=== PATIENT | male | born 1955 | race Caucasian/White ===

== ENCOUNTER 2017-08-09 19:34 | Emergency (ER) | payer OTHER ==
[~2017-08-09] VITALS: Ht 188 cm; Wt 147.3 kg
[2017-08-09 19:35] VITALS: BP 103/69; PULSE 69; RESP 16; TEMP 98.2; O2SAT 98
[2017-08-09] MEDS ORDERED: ACTO45TA15 PO (19:57)
[2017-08-09] MEDS ORDERED: LOSA100T PO (19:57)
[2017-08-09] MEDS ORDERED: ASPI-516 CHEW (19:57)
[2017-08-09] MEDS ORDERED: SIMV40TA PO (19:57)
[2017-08-09] MEDS ORDERED: METF500T PO (19:57)
[2017-08-09] MEDS ORDERED: LANTUS2P SQ (19:57)
--- NOTE | 2017-08-09 20:07 | PD ---
HPI Chief Complaint: Injury Time Seen by Provider: 20:01 Travel History International Travel<30 days: No Contact w/Intl Traveler<30days: No Traveled to known affect area: No History of Present Illness HPI The patient is a 62-year-old male that complains of left ankle pain/deformity since he stepped off his truck onto a stepladder that apparently gave way. He has never dislocated his ankle before. PFSH Past Medical History High Cholesterol: Yes Diabetes: Yes Patient Takes Glucophage: Yes Hypertension: Yes ?: Not Social History Alcohol Use: Yes (SELDOM) Tobacco Use: No Substance Use: No Allergies-Medications (Allergen,Severity, Reaction): Coded Allergies: No Known Allergies (Unverified , 08/09/17) Reported Meds & Prescriptions Reported Meds & Active Scripts Active Reported Lantus Inj (Insulin Glargine) 1,000 Unit/10 Ml Vial 1 Units SQ HS Actos (Pioglitazone HCl) 45 Mg Tab 45 Mg PO DAILY Metformin (Metformin HCl) 500 Mg Tab 500 Mg PO BIDPC Losartan (Losartan Potassium) 100 Mg Tab 100 Mg PO DAILY Aspirin 81 Mg Chew 81 Mg CHEW DAILY Simvastatin 40 Mg Tab 40 Mg PO HS Review of Systems Except as stated in HPI: all other systems reviewed are Neg Physical Exam Narrative GENERAL: Well-nourished, well-developed patient in moderate apparent distress with his left ankle discomfort. His vital signs are normal. SKIN: Focused skin assessment warm/dry. HEAD: Normocephalic. EYES: No scleral icterus. No injection or drainage. NECK: Supple, trachea midline. No JVD or lymphadenopathy. CARDIOVASCULAR: Regular rate and rhythm without murmurs, gallops, or rubs. RESPIRATORY: Breath sounds equal bilaterally. No accessory muscle use. GASTROINTESTINAL: Abdomen soft, non-tender, nondistended. MUSCULOSKELETAL: No cyanosis, or edema. There is obvious deformity of the left ankle with eversion deformity. Good capillary refill and pinprick is present on the foot. BACK: Nontender without obvious deformity. No CVA tenderness. Data Data Last Documented VS Vital Signs Date Time Temp Pulse Resp B/P (MAP) Pulse Ox O2 Delivery O2 Flow Rate FiO2 08/09/17 21:00 98 6.00 08/09/17 19:58 16 08/09/17 19:35 98.2 69 103/69 (80) Orders Orders Ankle, Complete ([id number]) (08/09/17 20:01) Iv Access Insert/Monitor (08/09/17 20:10) Ecg Monitoring (08/09/17 20:10) Oximetry (08/09/17 20:10) Morphine Inj (Morphine Inj) (08/09/17 20:15) Sodium Chloride 0.9% Flush (Ns Flush) (08/09/17 20:15) Etomidate Inj (Amidate Inj) (08/09/17 20:45) Splint Or Brace Apply/Monitor (08/09/17 21:20) Ankle, Limited (Ap&Lat) (08/09/17 21:25) Fiberglass Short Leg Splint Ad (08/09/17 ) Fiberglass Sugartong Sp Ad Sl (08/09/17 ) Crutches (08/09/17 22:14) MDM Medical Decision Making Medical Screen Exam Complete: Yes Emergency Medical Condition: Yes Medical Record Reviewed: Yes Interpretation(s) X-rays show fracture of the distal fibula 6 cm above the ankle and posterior dislocation of the talus relative to the tibia. The fracture is mildly comminuted distal fibular shaft. Differential Diagnosis Dislocation ankle, sprained ankle-unlikely, fracture/dislocation ankle, fracture ankle Narrative Course The patient has a fracture/dislocation of the ankle. The reduction came out well here in emergency department and Dr. Olvera wants to follow this patient in the office. The patient is to call tomorrow morning to set up the appointment. He will be given crutches and is given him a Kincaid splint. Procedures Procedure Narrative The patient had procedural sedation used for reduction of his left ankle fracture/dislocation. Etomidate was used, 20 mg, and the reduction was performed easily. I had to remain for 20 minutes because the Kincaid splint had to be put on after the reduction. The patient tolerated the procedure well. Total time: 20 minutes. Diagnosis Primary Impression: Fracture dislocation of left ankle Additional Instructions: As we discussed, follow-up with orthopedics, call tomorrow morning to set up the appointment. Med/Other Pt SpecificInfo: Prescription(s) given Scripts Tramadol (Tramadol) 50 Mg Tab 50 MG PO Q4H Y for PAIN, #21 TAB 0 Refills Prov: Lloyd Cai MD 08/09/17 Disposition: 01 DISCHARGE HOME Condition: Stable Lloyd Cai MD Aug 09, 2017 20:07
[2017-08-09] MEDS ORDERED: SODIUM CHLORIDE 0.9% FLUSH 10 ML FLUSH IV FLUSH PRN (20:15)
[2017-08-09] MEDS ORDERED: MORPHINE SULFATE 4 MG/ML INJ IV PUSH ONE (20:15)
[2017-08-09] MEDS ORDERED: ETOMIDATE 20 MG/10 ML VIAL IV PUSH ONE (20:45)
[2017-08-09 21:00] VITALS: O2SAT 98
--- NOTE | 2017-08-09 21:13 | RADRPT ---
EXAM DATE/TIME: 08/09/2017 20:17 [facility] COMPARISON: No previous studies available for comparison. INDICATIONS : Trauma, fall off step ladder. MEDICAL HISTORY : None. SURGICAL HISTORY : None. ENCOUNTER: Initial ACUITY: 1 day PAIN SCORE: 10/10 LOCATION: Left ankle FINDINGS: 3 views of left ankle. Ankle fracture dislocation is seen with distal fibula shaft fracture 6 cm abov e the ankle. 33 posterior angulation of the distal fibular fracture fragment. Posterior dislocation of the talus relative to the tibia. No tibial fracture identified. CONCLUSION: Mildly comminuted angulated distal fibular shaft fracture. Tibiotalar joint dislocation with posterio r shift of the talus relative to the tibia. Caden Chacon MD on August 09, 2017 at 21:10 Board Certified Radiologist. This report was verified electronically.
--- NOTE | 2017-08-09 22:06 | RADRPT ---
EXAM DATE/TIME: 08/09/2017 21:38 [facility] COMPARISON: ANKLE LEFT COMPLETE ([id number]), August 09, 2017, 20:17. INDICATIONS : Post reduction. MEDICAL HISTORY : None. SURGICAL HISTORY : None. ENCOUNTER: Initial ACUITY: 1 day PAIN SCORE: 7/10 LOCATION: Left ankle FINDINGS: 2 views left ankle. Distal fibular fracture now demonstrates near anatomic alignment. Interval reduct ion of tibiotalar dislocation. CONCLUSION: Interval reduction of ankle fracture dislocation. Caden Chacon MD on August 09, 2017 at 22:03 Board Certified Radiologist. This report was verified electronically.
[2017-08-09] MEDS ORDERED: TRAM50TA PO (22:18)
[2017-08-09] MEDS ORDERED: traMADol HCL 50 MG TAB PO ONE (22:30)
[2017-08-09 22:40] VITALS: BP 145/67
== END 2017-08-09 22:43 | disposition home or self-care (01) ==
LOC: PHED 19:34
DX: S82.832A Other fracture of upper and lower end of left fibula, initial encounter for closed fracture (principal); W11.XXXA Fall on and from ladder, initial encounter; E78.00 Pure hypercholesterolemia, unspecified; E11.9 Type 2 diabetes mellitus without complications; I10 Essential (primary) hypertension
CPT/HCPCS: 28435; 73600; 73610; 96374; 99152; 99285; E0113; J2270

== ENCOUNTER 2017-08-20 05:47 | Day surgery (SDC) | payer OTHER ==
[~2017-08-20] VITALS: Ht 188 cm; Wt 115.5 kg
[~2017-08-20 05:47] MED LIST: ACTO45TA15 PO; ASPI-516 CHEW; LANTUS2P SQ; LOSA100T PO; METF500T PO; SIMV40TA PO; TRAM50TA PO
[2017-08-20] MEDS ORDERED: CHLORHEXIDINE GLUCONATE 4% SOLN 120 ML BTL TOPICAL SCH (06:15)
[2017-08-20] MEDS ORDERED: SODIUM CHLORID 0.9% 500 ML IV PRN (06:15)
[2017-08-20] MEDS ORDERED: CHLORHEXIDINE GLUCONATE 2 % 1 PACK (2 CLOTHS) TOPICAL PRN (06:15)
[2017-08-20] MEDS ORDERED: METOPROLOL TARTRATE 25 MG TAB PO PRN (06:15)
[2017-08-20] MEDS ORDERED: LACTATED RINGER'S 1000 ML IV PRN (06:15)
[2017-08-20] MEDS ORDERED: POVIDONE IODINE 5% (ANTISEPSIS KIT) 4 APPLICATIONS EACH NARE PRN (06:15)
[2017-08-20] MEDS ORDERED: VANCOMYCIN 1000 MG/NS 250 ML (for <70 kg) IV SCH ×2 (06:15)
[2017-08-20] MEDS ORDERED: ceFAZolin 2 GM PREMIX 50 ML IV SCH (06:15)
[2017-08-20 06:37] VITALS: BP 158/82; PULSE 74; RESP 18; TEMP 97.7; O2SAT 96
[2017-08-20] MEDS ORDERED: INSULIN HUMAN REGULAR 1,000 UNITS/10 ML VIAL ONE (06:45)
[2017-08-20] MEDS ORDERED: OMEGCAP PO (09:12)
--- NOTE | 2017-08-20 21:41 | EKG ---
Date Performed: 08/20/2017 Time Performed: 06:58:51 PTAGE: 62 years EKG: ATRIAL FIBRILLATION INFERIOR MYOCARDIAL INFARCTION , PROBABLY OLD ABNORMAL ECG NO PREVIOUS TRACING DOCTOR: Yayo Quintero Interpretating Date/Time 08/20/2017 21:39:45
[2017-08-21] MEDS ORDERED: HYDR-3583 PO (09:59)
[2017-08-21] MEDS ORDERED: CALCTAB19 PO (09:59)
[2017-08-21] MEDS ORDERED: XARE20TA PO (10:34)
== END 2017-08-20 08:12 | disposition home or self-care (01) ==
LOC: HSDC 05:47
PROVIDERS: ATTEND Orthopaedic Surgery Orthopaedic Trauma
DX: S99.912A Unspecified injury of left ankle, initial encounter (principal); I48.91 Unspecified atrial fibrillation; Z53.09 Procedure and treatment not carried out because of other contraindication
CPT/HCPCS: 93005; G0463; J1815; J7120; 99211

== ENCOUNTER 2017-08-20 08:18 | Observation (INO) | payer OTHER ==
[~2017-08-20] VITALS: Ht 188 cm; Wt 119.2 kg
[2017-08-20] VITALS (8 sets, daily range): BP systolic 140–167; BP diastolic 75–85; PULSE 66–84; RESP 18–20; TEMP 97–98.3; O2SAT 96–99
[2017-08-20 09:08] LABS: AUTOMATED NEUTROPHIL # 4.4 TH/MM3 (1.8-7.7); BASOPHIL % 0.6 % (0.0-2.0); EOSINOPHIL # 0.7 TH/MM3 (0-0.4); EOSINOPHIL % 9.3 % (0.0-4.0); HEMOGLOBIN 13.7 GM/DL (13.0-17.0); LYMPH % 22.8 % (9.0-44.0); LYMPHOCYTE # 1.7 TH/MM3 (1.0-4.8); MEAN CELL VOLUME 82.7 FL (80.0-100.0); MEAN CORPUSCULAR HEMOGLOBIN 28.2 PG (27.0-34.0); MEAN CORPUSCULAR HGB CONC 34.2 % (32.0-36.0); MEAN PLATELET VOLUME 8.6 FL (7.0-11.0); MONOCYTE # 0.7 TH/MM3 (0-0.9); NEUT % 58.3 % (16.0-70.0); PLATELET COUNT 272 TH/MM3 (150-450); RED BLOOD COUNT 4.84 MIL/MM3 (4.50-5.90); RED CELL DISTRIBUTION WIDTH 13.5 % (11.6-17.2); WHITE BLOOD COUNT 7.6 TH/MM3 (4.0-11.0)
[2017-08-20] MEDS ORDERED: OMEGCAP PO (09:12)
--- NOTE | 2017-08-20 09:15 | PD.CONS ---
HPI Consult Requested By Primary Care Physician Dinesh Cuello MD History of Present Illness 62-year-old male with a past medical history of HTN, HLD, DM. The patient was to have surgery on his left ankle fracture today. Prior to the surgery, he was found to have atrial fibrillation/flutter and was referred to the ED. He states he has a yearly EKG with his PCP and has always been normal in the past. He denies any chest pain, shortness breath, or palpitations. The plan at this time is for admission for cardiac clearance today and surgery with orthopedics tomorrow if cleared. The patient denies any history of stroke or TIA. Review of Systems Negative except as stated in the history of present illness Past Family Social History Allergies: Coded Allergies: No Known Allergies (Unverified , 08/09/17) Past Medical History Hypertension Hyperlipidemia Diabetes mellitus Reported Medications Reported Meds & Active Scripts Active Tramadol (Tramadol HCl) 50 Mg Tab 50 Mg PO Q4H PRN Reported Lantus Inj (Insulin Glargine) 1,000 Unit/10 Ml Vial 1 Units SQ HS Actos (Pioglitazone HCl) 45 Mg Tab 45 Mg PO DAILY Metformin (Metformin HCl) 500 Mg Tab 500 Mg PO BIDPC Losartan (Losartan Potassium) 100 Mg Tab 100 Mg PO DAILY Aspirin 81 Mg Chew 81 Mg CHEW DAILY Simvastatin 40 Mg Tab 40 Mg PO HS Family History Father with atrial fibrillation Physical Exam Vital Signs Vital Signs Date Time Temp Pulse Resp B/P (MAP) Pulse Ox O2 Delivery O2 Flow Rate FiO2 08/20/17 09:02 80 18 08/20/17 08:47 98.3 84 18 157/79 (105) 96 Physical Exam GENERAL: Well-developed well-nourished. Obese. In no acute distress. NECK: No carotid bruits. No JVD. CARDIOVASCULAR: Irregular controlled rate and irregular rhythm. No murmur appreciated. RESPIRATORY: No accessory muscle use. Clear to auscultation. Breath sounds equal bilaterally. MUSCULOSKELETAL: Left ankle splint. No edema. NEUROLOGICAL: Awake and alert. Normal speech. Laboratory Laboratory Tests Test 08/20/17 08:45 Assessment and Plan Assessment and Plan 62-year-old male with a past medical history of HTN, HLD, DM. The patient was to have surgery on his left ankle fracture today. Prior to the surgery, he was found to have atrial fibrillation/flutter and was referred to the ED. The plan at this time is for admission for cardiac clearance today and surgery with orthopedics tomorrow if cleared. Atrial fibrillation/flutter: Rate is controlled. Chadsvasc 2 for hypertension and diabetes mellitus, hold anticoagulation for now with upcoming surgery. Plan for Lexiscan and echocardiogram for preoperative clearance. Hypertension: Continue losartan Hyperlipidemia: Continue statin Discussed Condition With Patient with SO at bedside. Dr. Barrera, Pradeep Neely Aug 20, 2017 09:15
[2017-08-20 09:18] LABS: BICARBONATE 25.8 MEQ/L (21.0-32.0); CALCIUM 8.8 MG/DL (8.5-10.1); CREATININE 0.82 MG/DL (0.60-1.30)
--- NOTE | 2017-08-20 09:23 | PD ---
HPI Chief Complaint: Medical Clearance Time Seen by Provider: 08:44 Travel History International Travel<30 days: No Contact w/Intl Traveler<30days: No Traveled to known affect area: No History of Present Illness HPI 62-year-old male was brought in emergency room for new onset atrial fibrillation. Patient has history hypertension and diabetes. Patient was diagnosed with fracture left ankle recently and supposed to have surgery today. EKG done this morning shows atrial fibrillation. Patient was sent to the ED for evaluation. Patient denies any history of palpitation, history of atrial fibrillation in the past. Patient denies any chest pain or shortness of breath. Patient take aspirin 81 mg daily. PFSH Past Medical History Cancer: No Cardiovascular Problems: No High Cholesterol: Yes Diabetes: Yes Patient Takes Glucophage: Yes Endocrine: No Genitourinary: No Hepatitis: No Hiatal Hernia: No Hypertension: Yes Immune Disorder: No Musculoskeletal: No Neurologic: No Psychiatric: No Reproductive: No Respiratory: No Thyroid Disease: No Tetanus Vaccination: < 5 Years Influenza Vaccination: No Past Surgical History Surgical History: No Previous Surgery AICD: No Joint Replacement: No Pacemaker: No Social History Alcohol Use: Yes (SELDOM) Tobacco Use: No Substance Use: No Allergies-Medications (Allergen,Severity, Reaction): Coded Allergies: No Known Allergies (Unverified , 08/09/17) Reported Meds & Prescriptions Reported Meds & Active Scripts Active Tramadol (Tramadol HCl) 50 Mg Tab 50 Mg PO Q4H PRN Reported [place]-3 Fish Oil/Vitamin (Fish Oil-Cholecalciferol) 1,000-1,000 Mg Cap 1 Cap PO DAILY Lantus Inj (Insulin Glargine) 1,000 Unit/10 Ml Vial 1 Units SQ HS Actos (Pioglitazone HCl) 45 Mg Tab 45 Mg PO DAILY Metformin (Metformin HCl) 500 Mg Tab 500 Mg PO BIDPC Losartan (Losartan Potassium) 100 Mg Tab 100 Mg PO DAILY Aspirin 81 Mg Chew 81 Mg CHEW DAILY Simvastatin 40 Mg Tab 40 Mg PO HS Review of Systems General / Constitutional: No: Fever Eyes: No: Visual changes HENT: No: Headaches Cardiovascular: No: Chest Pain or Discomfort Respiratory: No: Shortness of Breath Gastrointestinal: No: Abdominal Pain Genitourinary: No: Dysuria Musculoskeletal: No: Pain Skin: No Rash Neurologic: No: Weakness Psychiatric: No: Depression Endocrine: No: Polydipsia Hematologic/Lymphatic: No: Easy Bruising Physical Exam Narrative GENERAL: Well-nourished, well-developed patient. SKIN: Focused skin assessment warm/dry. HEAD: Normocephalic. EYES: No scleral icterus. No injection or drainage. NECK: Supple, trachea midline. No JVD or lymphadenopathy. CARDIOVASCULAR: Irregularly irregular rate and rhythm without murmurs, gallops, or rubs. RESPIRATORY: Breath sounds equal bilaterally. No accessory muscle use. GASTROINTESTINAL: Abdomen soft, non-tender, nondistended. MUSCULOSKELETAL: No cyanosis, or edema. BACK: Nontender without obvious deformity. No CVA tenderness. Neurologic exam normal. Data Data Last Documented VS Vital Signs Date Time Temp Pulse Resp B/P (MAP) Pulse Ox O2 Delivery O2 Flow Rate FiO2 08/20/17 09:02 80 18 08/20/17 08:47 98.3 157/79 (105) 96 Orders Orders Electrocardiogram (08/20/17 08:44) Complete Blood Count With Diff (08/20/17 08:44) Basic Metabolic Panel (Bmp) (08/20/17 08:44) Prothrombin Time / Inr (Pt) (08/20/17 08:44) Act Partial Throm Time (Ptt) (08/20/17 08:44) Thyroid Stimulating Hormone (08/20/17 08:44) Chest, Single Ap (08/20/17 08:44) Iv Access Insert/Monitor (08/20/17 08:44) Ecg Monitoring (08/20/17 08:44) Oximetry (08/20/17 08:44) Diet Npo Except Meds (08/20/17 Breakfast) Myocardial Perf Pharm Sp W/Ef (08/20/17 ) Echo 2d Comp With Doppler (08/20/17 ) Labs Laboratory Tests Test 08/20/17 08:45 White Blood Count 7.6 TH/MM3 Red Blood Count 4.84 MIL/MM3 Hemoglobin 13.7 GM/DL Hematocrit 40.0 % Mean Corpuscular Volume 82.7 FL Mean Corpuscular Hemoglobin 28.2 PG Mean Corpuscular Hemoglobin Concent 34.2 % Red Cell Distribution Width 13.5 % Platelet Count 272 TH/MM3 Mean Platelet Volume 8.6 FL Neutrophils (%) (Auto) 58.3 % Lymphocytes (%) (Auto) 22.8 % Monocytes (%) (Auto) 9.0 % Eosinophils (%) (Auto) 9.3 % Basophils (%) (Auto) 0.6 % Neutrophils # (Auto) 4.4 TH/MM3 Lymphocytes # (Auto) 1.7 TH/MM3 Monocytes # (Auto) 0.7 TH/MM3 Eosinophils # (Auto) 0.7 TH/MM3 Basophils # (Auto) 0.0 TH/MM3 CBC Comment DIFF FINAL Differential Comment Blood Urea Nitrogen 21 MG/DL Creatinine 0.82 MG/DL Random Glucose 248 MG/DL Calcium Level 8.8 MG/DL Sodium Level 135 MEQ/L Potassium Level 4.3 MEQ/L Chloride Level 102 MEQ/L Carbon Dioxide Level 25.8 MEQ/L Anion Gap 7 MEQ/L Estimat Glomerular Filtration Rate 95 ML/MIN MDM Medical Decision Making Medical Screen Exam Complete: Yes Emergency Medical Condition: Yes Interpretation(s) 9:23 AM. EKG showed atrial fibrillation/atrial flutter. Differential Diagnosis Differential diagnosis including atrial ablation, atrial flutter, sinus tachycardia sinus arrhythmia. Narrative Course 62-year-old male with new onset atrial fibrillation/atrial flutter. Patient will be admitted to medical service, medical clearance by storeperson for possible surgery in a.m. Karla scan and echocardiogram will be done today. Diagnosis Primary Impression: New onset atrial fibrillation Admitting Information Admitting Physician Requests: Admit James Baig MD Aug 20, 2017 09:23
[2017-08-20 09:24] LABS: INTERNATIONAL NORMALIZED RATIO 1.1 RATIO; PROTHROMBIN TIME - PATIENT 11.6 SEC (9.8-11.6)
--- NOTE | 2017-08-20 09:34 | RADRPT ---
EXAM DATE/TIME: 08/20/2017 08:49 [facility] COMPARISON: No previous studies available for comparison. INDICATIONS : Patient stated he came in for outpatient surgery on left ankle. MEDICAL HISTORY : Diabetic, Hypertension. SURGICAL HISTORY : None. ENCOUNTER: Initial ACUITY: 1 day PAIN SCORE: 0/10 LOCATION: Bilateral chest FINDINGS: The cardiac silhouette is enlarged in transverse diameter. The lungs are free of acute parenchymal op acity. No effusions are identified. Osseous structures are intact. CONCLUSION: Cardiomegaly. No acute cardiopulmonary disease. Tay Bardales MD on August 20, 2017 at 9:32 Board Certified Radiologist. This report was verified electronically.
[2017-08-20] MEDS: SODIUM CHLOR 0.9% 1000 ML INJ 1,000 ML IV SCH ×3 (09:51→22:29)
--- NOTE | 2017-08-20 10:16 | HHI.HP ---
HPI Service [facility] Hospitalists Primary Care Physician Dinesh Cuello MD Admission Diagnosis new-onset atrial fibrillation. Chief Complaint: Atrail fibrillation found on preoperative EKG Travel History International Travel<30 Days: No Contact w/Intl Traveler <30 Da: No Traveled to Known Affected Are: No History of Present Illness 62-year-old male with a past medical history of HTN, HLD, DM. On 08/09/17 patient had stepped off his truck onto a stepladder that apparently gave way causing a fractured left ankle. The patient was to have surgery on his left ankle fracture today. Prior to the surgery, he was found to have atrial fibrillation/flutter and was referred to the ED. He states he has a yearly EKG with his PCP and has always been normal in the past. He denies any chest pain, shortness breath, palpitations, fevers or chills. The plan at this time is for admission for cardiac clearance today and surgery with orthopedics tomorrow if cleared. Review of Systems Constitutional: DENIES: Fatigue, Fever, Chills Eyes: DENIES: Blurred vision, Diplopia, Vision loss Respiratory: DENIES: Cough, Sputum production, Shortness of breath Cardiovascular: DENIES: Chest pain, Palpitations, Dyspnea on Exertion Gastrointestinal: DENIES: Abdominal pain, Constipation, Diarrhea, Nausea, Vomiting Musculoskeletal: COMPLAINS OF: Joint pain, Stiffness, Joint Swelling Neurologic: COMPLAINS OF: Abnormal gait (secodary to fractured left ankle), DENIES: Headache, Localized weakness, Speech Problems Psychiatric: DENIES: Anxiety, Confusion, Depression Past Family Social History Past Medical History Hypertension Hyperlipidemia Diabetes mellitus Past Surgical History Hernia repair as an infant Reported Medications Tramadol (Tramadol HCl) 50 Mg Tab 50 Mg PO Q4H PRN [place]-3 Fish Oil/Vitamin (Fish Oil-Cholecalciferol) 1,000-1,000 Mg Cap 1 Cap PO DAILY Lantus Inj (Insulin Glargine) 1,000 Unit/10 Ml Vial 1 Units SQ HS Actos (Pioglitazone HCl) 45 Mg Tab 45 Mg PO DAILY Metformin (Metformin HCl) 500 Mg Tab 500 Mg PO BIDPC Losartan (Losartan Potassium) 100 Mg Tab 100 Mg PO DAILY Aspirin 81 Mg Chew 81 Mg CHEW DAILY Simvastatin 40 Mg Tab 40 Mg PO HS Allergies: Coded Allergies: No Known Allergies (Unverified , 08/09/17) Active Ordered Medications Current Medications Medications (Trade) Dose Ordered Sig/Mone Route Start Time Stop Time Status Last Admin Sodium Chloride 1,000 ml @ 125 mls/hr Q8H IV 08/20/17 09:30 08/20/17 09:51 (NS Flush) 2 ml UNSCH PRN IV FLUSH 08/20/17 10:15 UNV (NS Flush) 2 ml BID IV FLUSH 08/20/17 21:00 UNV (Tylenol) 650 mg Q4H PRN PO 08/20/17 10:15 UNV (Zofran Inj) 4 mg Q6H PRN IVP 08/20/17 10:15 UNV (Narcan Inj) 0.4 mg UNSCH PRN IV PUSH 08/20/17 10:15 UNV (Faith-Colace) 1 tab BID PO 08/20/17 21:00 UNV (Milk Of Magnesia Liq) 30 ml Q12H PRN PO 08/20/17 10:15 UNV Family History Father with atrial fibrillation Social History Denies ETOH use ETOH use rare Denies illicit drugs Physical Exam Vital Signs Vital Signs Date Time Temp Pulse Resp B/P (MAP) Pulse Ox O2 Delivery O2 Flow Rate FiO2 08/20/17 09:02 80 18 08/20/17 08:47 98.3 84 18 157/79 (105) 96 Physical Exam GENERAL: This is a well-nourished, well-developed patient, in no apparent distress. SKIN: No rashes, ecchymoses or lesions. Cool and dry. HEAD: Atraumatic. Normocephalic. No temporal or scalp tenderness. EYES: Extraocular motions intact. No scleral icterus. No injection or drainage. CARDIOVASCULAR Irregularly irregular RESPIRATORY: Clear to auscultation. Breath sounds equal bilaterally. No wheezes , rales, or rhonchi. GASTROINTESTINAL: Abdomen soft, non-tender, nondistended. No hepato-splenomegaly , or palpable masses. No guarding. MUSCULOSKELETAL: Left lower extremity in splint NEUROLOGICAL: Awake and alert. No focal deficits. Motor and sensory grossly within normal limits. Five out of 5 muscle strength in all muscle groups, with the exception of LLE. Normal speech. Laboratory Laboratory Tests Test 08/20/17 08:45 White Blood Count 7.6 Red Blood Count 4.84 Hemoglobin 13.7 Hematocrit 40.0 Mean Corpuscular Volume 82.7 Mean Corpuscular Hemoglobin 28.2 Mean Corpuscular Hemoglobin Concent 34.2 Red Cell Distribution Width 13.5 Platelet Count 272 Mean Platelet Volume 8.6 Neutrophils (%) (Auto) 58.3 Lymphocytes (%) (Auto) 22.8 Monocytes (%) (Auto) 9.0 Eosinophils (%) (Auto) 9.3 Basophils (%) (Auto) 0.6 Neutrophils # (Auto) 4.4 Lymphocytes # (Auto) 1.7 Monocytes # (Auto) 0.7 Eosinophils # (Auto) 0.7 Basophils # (Auto) 0.0 CBC Comment DIFF FINAL Differential Comment Prothrombin Time 11.6 Prothromb Time International Ratio 1.1 Activated Partial Thromboplast Time 22.9 Blood Urea Nitrogen 21 Creatinine 0.82 Random Glucose 248 Calcium Level 8.8 Sodium Level 135 Potassium Level 4.3 Chloride Level 102 Carbon Dioxide Level 25.8 Anion Gap 7 Estimat Glomerular Filtration Rate 95 Thyroid Stimulating Hormone 3rd Gen 1.500 Result Diagram: 08/20/17 0845 08/20/17 0845 Imaging Last Impressions Chest X-Ray 08/20/1744 Signed Impressions: Service Date/Time: Sunday, August 20, 2017 08:49 - CONCLUSION: Cardiomegaly. No acute cardiopulmonary disease. MD Abdulaziz Grigsby VTE Risk Assessment Abdulaziz VTE Risk Assessment: Mod/High Risk (score >= 2) Caprini Risk Assessment Model Point Value = 1 Point Value = 2 Point Value = 3 Point Value = 5 Age 41-60 Minor surgery BMI > 25 kg/m2 Swollen legs Varicose veins or History of unexplained or recurrent spontaneous Oral contraceptives or hormone replacement Sepsis (< 1 month) Serious lung disease, including pneumonia (< 1 month) Abnormal pulmonary function Acute myocardial infarction Congestive heart failure (< 1 month) History of inflammatory bowel disease Medical patient at bed rest Age 61-74 Arthroscopic surgery Major open surgery (> 45 min) Laparoscopic surgery (> 45 min) Malignancy Confined to bed (> 72 hours) Immobilizing plaster cast Central venous access Age >= 75 History of VTE Family history of VTE Factor V Leiden Prothrombin [id number] Lupus anticoagulant Anticardiolipin antibodies Elevated serum homocysteine Heparin-induced thrombocytopenia Other congenital or acquired thrombophilia Stroke (< 1 month) Elective arthroplasty Hip, pelvis, or leg fracture Acute spinal cord injury (< 1 month) Prophylaxis Regimen Total Risk Factor Score Risk Level Prophylaxis Regimen 0-1 Low Early ambulation 2 Moderate Order ONE of the following: *Sequential Compression Device (SCD) *Heparin 5000 units SQ BID 3-4 Higher Order ONE of the following medications: *Heparin 5000 units SQ TID *Enoxaparin/Lovenox 40 mg SQ daily (WT < 150 kg, CrCl > 30 mL/min) *Enoxaparin/Lovenox 30 mg SQ daily (WT < 150 kg, CrCl > 10-29 mL/min) *Enoxaparin/Lovenox 30 mg SQ BID (WT < 150 kg, CrCl > 30 mL/min) AND/OR *Sequential Compression Device (SCD) 5 or more Highest Order ONE of the following medications: *Heparin 5000 units SQ TID (Preferred with Epidurals) *Enoxaparin/Lovenox 40 mg SQ daily (WT < 150 kg, CrCl > 30 mL/min) *Enoxaparin/Lovenox 30 mg SQ daily (WT < 150 kg, CrCl > 10-29 mL/min) *Enoxaparin/Lovenox 30 mg SQ BID (WT < 150 kg, CrCl > 30 mL/min) AND *Sequential Compression Device (SCD) Assessment and Plan Problem List: (1) New onset atrial fibrillation ICD Codes: I48.91 - Unspecified atrial fibrillation Status: Acute Plan: 62-year-old male with a past medical history of HTN, HLD, DM. The patient was to have surgery on his left ankle fracture today. Prior to the surgery, he was found to have atrial fibrillation/flutter and was referred to the ED. The plan at this time is for admission for cardiac clearance today and surgery with orthopedics tomorrow if cleared. Atrial fibrillation/flutter: Rate is controlled in the 70's. Chadsvasc 2 for hypertension and diabetes mellitus, hold anticoagulation for now with upcoming surgery. Echocardiogram ordered and pending TSH 1.5 Plan for Lexiscan and echocardiogram for preoperative clearance. Cardiology also following, appreciate input (2) Closed left ankle fracture ICD Codes: S82.892A - Other fracture of left lower leg, initial encounter for closed fracture Plan: Consult to Dr. Bray If lexiscan negative plan to proceed with surgery in AM NPO after midnight (3) Diabetes ICD Codes: E11.9 - Type 2 diabetes mellitus without complications Plan: Patient currently NPO accuchecks [facility] with SSI coverage hold oral diabetic medication at this time. Patient takes metformin 500 mg BID and Actos 45 mg daily (4) HTN (hypertension) ICD Codes: I10 - Essential (primary) hypertension Plan: Continue home losartan 100 mg PO daily (5) Hyperlipidemia ICD Codes: E78.5 - Hyperlipidemia, unspecified Plan: Continue statin Assessment and Plan Patient examined. Assessment and plan formulated with Gretel oTvar PA-C. I agree with the above. Gretel Tovar Aug 20, 2017 10:16 Juan Tejada DO Aug 26, 2017 00:15
[2017-08-20] MEDS ORDERED: NALOXONE HCL 0.4 MG/ML AMP IV PUSH PRN (11:00)
[2017-08-20] MEDS ORDERED: SODIUM CHLORIDE 0.9% FLUSH 10 ML FLUSH IV FLUSH PRN (11:00)
[2017-08-20] MEDS ORDERED: DEXTROSE 50% IN WATER 50 ML VIAL(D50) IV PUSH PRN (11:00)
[2017-08-20] MEDS ORDERED: MAGNESIUM HYDROXIDE SUSP 30 ML CUP PO PRN (11:00)
[2017-08-20] MEDS ORDERED: ONDANSETRON HCL 4 MG/2 ML VIAL IVP PRN (11:00)
[2017-08-20] MEDS ORDERED: GLUCAGON 1 MG/ML VIAL OTHER PRN (11:00)
[2017-08-20] MEDS ORDERED: ACETAMINOPHEN 325 MG TAB PO PRN ×2 (11:00→17:30)
[2017-08-20] MEDS: INSULIN ASPART SUPPLEMENTAL SCALE SQ SCH ×3 (12:00→21:00)
[2017-08-20] MEDS ORDERED: REGADENOSON INJ 0.4 MG/5 ML SYR ONE (14:18)
--- NOTE | 2017-08-20 15:56 | RADRPT ---
EXAM DATE/TIME: 08/20/2017 13:53 [facility] COMPARISON: No previous studies available for comparison. INDICATIONS : Atrial fibrillation. DOSE: 35 mCi Tc99m Myoview at stress. 11 mCi Tc99m Myoview at rest. 0.4 mg Lexiscan STRESS SYMPTOMS: None. EJECTION FRACTION: 53% MEDICAL HISTORY : Hypercholesterolemia. Hypertension. Diabetes mellitus type 2. SURGICAL HISTORY : None. ENCOUNTER: Initial ACUITY: 1 day PAIN SCALE: 0/10 LOCATION: chest TECHNIQUE: The patient underwent pharmacologic stress with infusion of prescribed dose. Continuous ECG tracing was monitored during stress. Gated SPECT imaging was performed after stress and conventional SPECT i maging was performed at rest. The examination was performed on a SPECT/CT scanner, both attenuation and non-corrected datasets were reviewed. FINDINGS: DISTRIBUTION: The maximum perfused segment at stress is in the anterior lateral wall wall. PERFUSION STUDY: The pattern of perfusion at stress is within normal limits. GATED STUDY: There is intact wall motion and thickening without hypokinetic or dyskinetic segments. CONCLUSION: Negative for stress-induced ischemia. Fusion is better at stress than rest. Normal wall motion and ejection fraction. RISK CATEGORY: Low (<1% Annual Mortality Rate) Dg Dela Cruz MD FACR on August 20, 2017 at 15:53 Board Certified Radiologist. This report was verified electronically.
[2017-08-20] MEDS ORDERED: ACETAMINOPHEN/HYDROcodone 325 MG/5 MG TAB PO PRN (17:30)
[2017-08-20] MEDS: DOCUSATE SODIUM 50 MG/SENNA 8.6 MG TAB PO SCH (21:00)
[2017-08-20] MEDS ORDERED: PRAVASTATIN SOD 80 MG TAB PO SCH (21:00)
[2017-08-20] MEDS: SODIUM CHLORIDE 0.9% FLUSH 10 ML FLUSH IV FLUSH SCH (21:00)
--- NOTE | 2017-08-20 21:31 | EKG ---
Date Performed: 08/20/2017 Time Performed: 08:21:27 PTAGE: 62 years EKG: ATRIAL FIBRILLATION INFERIOR MYOCARDIAL INFARCTION ABNORMAL ECG NO PREVIOUS TRACING DOCTOR: Yayo Quintero Interpretating Date/Time 08/20/2017 21:29:34
[2017-08-21 01:15] VITALS: O2SAT 97
[2017-08-21 03:47] VITALS: PULSE 68
[2017-08-21 04:20] VITALS: BP 148/74; PULSE 70; RESP 18; TEMP 97.8; O2SAT 96
[2017-08-21] MEDS ORDERED: LACTATED RINGER'S 1000 ML IV PRN (05:45)
[2017-08-21] MEDS ORDERED: METOPROLOL TARTRATE 25 MG TAB PO PRN (05:45)
[2017-08-21] MEDS ORDERED: SODIUM CHLORID 0.9% 500 ML IV PRN (05:45)
[2017-08-21] MEDS ORDERED: CHLORHEXIDINE GLUCONATE 2 % 1 PACK (2 CLOTHS) TOPICAL PRN (05:45)
[2017-08-21] MEDS ORDERED: POVIDONE IODINE 5% (ANTISEPSIS KIT) 4 APPLICATIONS EACH NARE PRN (05:45)
[2017-08-21] MEDS: SODIUM CHLOR 0.9% 1000 ML INJ 1,000 ML IV SCH (06:00)
--- NOTE | 2017-08-21 06:56 | PD.ORT.PN ---
Subjective Subjective Remarks Resting comfortably with no new complaints. Objective Vitals Vital Signs Date Time Temp Pulse Resp B/P (MAP) Pulse Ox O2 Delivery O2 Flow Rate FiO2 08/21/17 04:20 97.8 70 18 148/74 (98) 96 08/21/17 01:15 97 08/20/17 23:41 66 08/20/17 23:20 97.1 69 18 157/82 (107) 97 08/20/17 22:12 Room Air 08/20/17 20:10 97.0 74 18 167/75 (105) 96 08/20/17 19:48 76 08/20/17 17:00 73 08/20/17 15:20 97.2 77 20 164/85 (111) 96 08/20/17 13:26 08/20/17 11:14 71 18 140/81 (100) 99 Room Air 08/20/17 09:02 80 18 08/20/17 08:47 98.3 84 18 157/79 (105) 96 I/O 08/20/17 08/20/17 08/20/17 08/21/17 08/21/17 08/21/17 07:00 15:00 23:00 07:00 15:00 23:00 Intake Total 1240 ml 1240 ml Output Total 400 ml Balance 1240 ml 840 ml Intake Oral 240 ml 240 ml IV Total 1000 ml 1000 ml Output Urine Total 400 ml # Voids 2 # Bowel Movements 1 Result Diagram: 08/20/17 0845 08/20/17 0845 Other Results Laboratory Tests Test 08/20/17 08:45 Prothromb Time International Ratio 1.1 RATIO Prothrombin Time 11.6 SEC (9.8-11.6) Imaging Last 24 hours Impressions Chest X-Ray 08/20/17 0844 Signed Impressions: Service Date/Time: Sunday, August 20, 2017 08:49 - CONCLUSION: Cardiomegaly. No acute cardiopulmonary disease. Tay Bardales MD Objective Remarks Left lower extremity: No pain with hip or knee range of motion. Ankle splint intact. Distally intact sensation with good capillary refills Assessment & Plan Assessment and Plan Left distal fibula and ankle injuries Nothing by mouth Plan for surgery this morning if cleared by medical. Sign consents Randy Javier Jr. Aug 21, 2017 06:56
[2017-08-21 08:00] VITALS: BP 157/77; PULSE 76; PULSE 77; RESP 20; TEMP 98.2; O2SAT 95
[2017-08-21] MEDS: INSULIN ASPART SUPPLEMENTAL SCALE SQ SCH ×2 (08:00→12:40)
[2017-08-21] MEDS ORDERED: VANCOMYCIN HCL 1000 MG VIAL ONE (08:28)
[2017-08-21] MEDS ORDERED: ceFAZolin INJ 1,000 MG VIAL ONE (08:29)
[2017-08-21] MEDS: SODIUM CHLORIDE 0.9% FLUSH 10 ML FLUSH IV FLUSH SCH (08:51)
[2017-08-21] MEDS: DOCUSATE SODIUM 50 MG/SENNA 8.6 MG TAB PO SCH (08:51)
[2017-08-21] MEDS ORDERED: LOSARTAN 50 MG TAB PO SCH (09:00)
[2017-08-21] MEDS ORDERED: CALCTAB19 PO (09:59)
[2017-08-21] MEDS ORDERED: HYDR-3583 PO (09:59)
--- NOTE | 2017-08-21 10:31 | PD.OP ---
cc: Dennis Kincaid MD Operative Report Date of Surgery: Aug 21, 2017 Preoperative Diagnosis: Left distal fibula fracture, left ankle syndesmosis disruption Postoperative Diagnosis: Procedure: Open reduction and fixation of left fibula, open reduction internal fixation left ankle syndesmosis Anesthesia: Gen. Surgeon: Dennis Kincaid Mud Analysis Operator(s): CAIT Mendez PA-C The surgical procedure was assisted by my physician prosthetics assistant. My P.A. presence was necessary throughout this case for the manipulation and positioning of the surgical extremity. My P.A. was assisting me throughout the duration of this procedure. The skill set of a physician prosthetics assistant was medically necessary to complete this procedure. During the surgical case the assistant professor surgical technology was working at the back table and the physician prosthetics assistant was directly assisting me. Operation and Findings: Plan of activity : Nonweightbearing Implants used : ITS Patient was seen and evaluated preoperatively and found to have a displaced left ankle fracture with syndesmosis disruption. Informed consent was obtained after a detailed discussion of risk and benefits of surgery. The operative site was marked. Patient was brought to the OR, placed on the OR table, and given IV sedation and general endotracheal anesthesia. IV antibiotics were given preoperatively. A timeout procedure was performed. The left leg was prepped with alcohol followed by Hibiclens and draped in the usual sterile fashion. Attention was turned towards the distal fibula. A four-inch incision was made over the distal fibula. The subcutaneous tissue was dissected with Bovie. The fracture site was visualized. The fracture site was cleaned with curets. The fracture was now reduced. The fracture keyed into anatomic alignment. K-wires were used to hold provisional fixation. An ITS plate was selected. The plate was provisionally held to bone with K-wires. 3.5 cortical screws were used to compress the plate to bone. Multiple cortical screws were placed above and below the fracture. Additional 2.7 cortical lag screws were placed from anterior to posterior to capture a posterior fragment. Next, attention was turned to the syndesmosis. The syndesmosis was stressed. There was clear widening of the syndesmosis with external rotation of the ankle. The syndesmosis was now held in a reduced position with the ankle in neutral position. Two Synthes 3.5 cortical screws were now placed through the fibula plate into the tibia. Fluoroscopy confirmed appropriate screw placement with well-aligned syndesmosis. Incisions were thoroughly irrigated. The subcutaneous tissue was closed with 3-0 PDS and the skin was closed with 3-0 nylon. Sterile dressings were applied. Patient placed into a well molded well- padded splint. The patient was transferred to Recovery in stable condition. Dennis Kincaid MD Aug 21, 2017 10:31
[2017-08-21] MEDS ORDERED: XARE20TA PO (10:34)
--- NOTE | 2017-08-21 10:42 | HHI.DS ---
Discharge Summary Admission Date Aug 20, 2017 at 10:06 Discharge Date: Aug 21, 2017 Admitting Diagnosis new-onset atrial fibrillation. (1) New onset atrial fibrillation Diagnosis: Principal ICD Codes: I48.91 - Unspecified atrial fibrillation Status: Acute (2) Closed left ankle fracture Diagnosis: Principal ICD Codes: S82.892A - Other fracture of left lower leg, initial encounter for closed fracture (3) Diabetes Diagnosis: Secondary ICD Codes: E11.9 - Type 2 diabetes mellitus without complications (4) HTN (hypertension) Diagnosis: Secondary ICD Codes: I10 - Essential (primary) hypertension (5) Hyperlipidemia Diagnosis: Secondary ICD Codes: E78.5 - Hyperlipidemia, unspecified Consultants Dr. Barrera, cardiology Dr. Bray, Orthopedic surgery Procedures ORIF left ankle syndesmosis 08/21/[address] Bray Brief History 62-year-old male with a past medical history of HTN, HLD, DM. On 08/09/17 patient had stepped off his truck onto a stepladder that apparently gave way causing a fractured left ankle. The patient was to have surgery on his left ankle fracture today. Prior to the surgery, he was found to have atrial fibrillation/flutter and was referred to the ED. He states he has a yearly EKG with his PCP and has always been normal in the past. He denies any chest pain, shortness breath, palpitations, fevers or chills. The plan at this time is for admission for cardiac clearance today and surgery with orthopedics tomorrow if cleared. CBC/BMP: 08/20/17 0845 08/20/17 0845 Significant Findings Laboratory Tests Test 08/20/17 08:45 Monocytes (%) (Auto) 9.0 % (0.0-8.0) Eosinophils (%) (Auto) 9.3 % (0.0-4.0) Eosinophils # (Auto) 0.7 TH/MM3 (0-0.4) Activated Partial Thromboplast Time 22.9 SEC (24.3-30.1) Blood Urea Nitrogen 21 MG/DL (7-18) Random Glucose 248 MG/DL (74-106) Sodium Level 135 MEQ/L (136-145) Imaging Last Impressions Chest X-Ray 08/20/17 0844 Signed Impressions: Service Date/Time: Sunday, August 20, 2017 08:49 - CONCLUSION: Cardiomegaly. No acute cardiopulmonary disease. Tay Bardales MD Myocardial Perfusion Scan Nuc Med 08/20/17 0000 Signed Impressions: Service Date/Time: Sunday, August 20, 2017 13:53 - CONCLUSION: Negative for stress-induced ischemia. Fusion is better at stress than rest. Normal wall motion and ejection fraction. RISK CATEGORY: Low (<1%% Annual Mortality Rate) Dg Dela Cruz MD FACR PE at Discharge GENERAL: This is a well-nourished, well-developed patient, in no apparent distress. CARDIOVASCULAR: Regular rate and rhythm without murmurs, gallops, or rubs. RESPIRATORY: Clear to auscultation. Breath sounds equal bilaterally. No wheezes , rales, or rhonchi. GASTROINTESTINAL: Abdomen soft, non-tender, nondistended. Normal active bowel sounds MUSCULOSKELETAL: Postoperative dressing dry and intact NEURO: Alert & Oriented x4 to person, place, time, situation. Moves all ext x4 Hospital Course New onset atrial fibrillation 62-year-old male with a past medical history of HTN, HLD, DM. The patient was to have surgery on his left ankle fracture today. Prior to the surgery, he was found to have atrial fibrillation/flutter and was referred to the ED. The plan at this time is for admission for cardiac clearance today and surgery with orthopedics tomorrow if cleared. Atrial fibrillation/flutter: Rate is controlled in the 70's. Chadsvasc 2 for hypertension and diabetes mellitus Echocardiogram completed but not yet read patient to follow-up with PCP after discharge TSH 1.5 Maurice negative Cardiology also following, appreciate input Initially planned to start patient on Xarelto 20 mg by mouth daily (08/22/17 ) discussed with orthopedic surgery PA Randy Javier, who is okay with patient starting Xarelto tomorrow 08/22/2017 On review of telemetry monitoring patient has converted back to SR, will hold off on starting Xarelto Patient to follow up with PCP 1 week after DC Closed left ankle fracture Consult to Dr. Katarina quan negative plan to proceed with surgery in AM Status post ORIF left ankle with Dr. Bray 08/21/2017 Patient cleared for discharge per orthopedic surgery Diabetes accuchecks ACHS with SSI coverage hold oral diabetic medication at this time. Patient takes metformin 500 mg BID and Actos 45 mg daily HTN (hypertension) Continue home losartan 100 mg PO daily Hyperlipidemia Continue statin Pt Condition on Discharge: Stable Discharge Disposition: Discharge Home Discharge Instructions DIET: Follow Instructions for: Diabetic Diet Activities you can perform: See Additionl Instruction Other Activity Instructions: Activity per orthopedic surgery Follow up Referrals: Orthopedics - 2 Weeks [facility] with Dennis Bray MD PCP Follow-up - [address] Cuello New Medications: Calcium Carbonate-Vitamin D (Calcium 600+D 200) 600-200 Mg-Unit Tab 1 TAB PO BID for Nutritional Supplement, #90 TAB 0 Refills Hydrocodone-Acetaminophen (Hydrocodone-Acetaminophen) 10-325 mg Tab 1 TAB PO Q4H PRN for PAIN, #60 TAB 0 Refills Continued Medications: Aspirin (Aspirin) 81 Mg Chew 81 MG CHEW DAILY, TAB 0 Refills Insulin Glargine Inj (Lantus Inj) 1,000 Unit/10 Ml Vial 1 UNITS SQ HS for Blood Sugar Management, VIAL 0 Refills Losartan (Losartan) 100 Mg Tab 100 MG PO DAILY for Blood Pressure Management, #30 TAB 0 Refills Metformin (Metformin) 500 Mg Tab 500 MG PO BIDPC for Blood Sugar Management, #60 TAB 0 Refills Pioglitazone (Actos) 45 Mg Tab 45 MG PO DAILY for Blood Sugar Management, #30 TAB 0 Refills Simvastatin (Simvastatin) 40 Mg Tab 40 MG PO HS for Cholesterol Management, #30 TAB 0 Refills Discontinued Medications: Fish Oil-Cholecalciferol ([place]-3 Fish Oil/Vitamin) 1,000-1,000 Mg Cap 1 CAP PO DAILY for Nutritional Supplement, CAP 0 Refills Tramadol (Tramadol) 50 Mg Tab 50 MG PO Q4H PRN for PAIN, #21 TAB 0 Refills Additional Information Patient examined. Assessment and plan formulated with Gretel Tovar PA-C. I agree with the above. Gretel Tovar Aug 21, 2017 10:42 Juan Tejada DO Aug 26, 2017 00:16
--- NOTE | 2017-08-21 10:52 | RADRPT ---
EXAM DATE/TIME: 08/21/2017 09:58 [facility] COMPARISON: ANKLE LEFT LIMITED (AP&LAT), August 09, 2017, 21:38. INDICATIONS : Open reduction internal fixation of right ankle fracture/dislocation MEDICAL HISTORY : None. SURGICAL HISTORY : None. ENCOUNTER: Initial ACUITY: 1 day PAIN SCORE: Non-responsive. LOCATION: Right distal tib/fib FINDINGS: Hardware is noted within the left distal fibula status post ORIF. Screws also traverse the distal fib marie and tibia and appear to be in good position. CONCLUSION: Status post ORIF of left distal fibular fracture with hardware in good position. Juno Haro MD on August 21, 2017 at 10:48 Board Certified Radiologist. This report was verified electronically.
[2017-08-21] MEDS ORDERED: Post-op Orders (for Pharmacy) XX ONE (11:00)
[2017-08-21] MEDS ORDERED: DO NOT ADM ANY ANTICOAGULANT DRUGS PRN (11:00)
[2017-08-21] MEDS ORDERED: MORPHINE SULFATE 2 MG/ML INJ IV PUSH PRN (11:00)
[2017-08-21] MEDS ORDERED: *RESP: ALBUTEROL 2.5 MG/3 ML NEB (PRN) PERIprocedural Use ONLY NEB ONE (11:09)
[2017-08-21] MEDS ORDERED: *morphine SULFATE 10 MG/ML PERIprocedure ONLY ONE ×3 (11:17→11:40)
[2017-08-21] MEDS ORDERED: *LABETALOL HCL 100 MG/20 ML VIAL PERIprocedural Use ONLY ONE (11:21)
[2017-08-21] MEDS ORDERED: *HYDROmorphone PF 1 MG VIAL PERIprocedural Use ONLY ONE (11:48)
[2017-08-21 12:00] VITALS: BP 148/74; PULSE 70; PULSE 74; RESP 20; TEMP 97.5; O2SAT 91
[2017-08-21] MEDS ORDERED: ACETAMINOPHEN/HYDROcodone 325 MG/10 MG TAB PO PRN (12:30)
[2017-08-21 16:00] VITALS: BP 135/69; PULSE 82; RESP 20; TEMP 97.9; O2SAT 91
--- NOTE | 2017-08-21 16:28 | ECHRPT ---
Indication: ATRIAL FIB/FLUTTER CONCLUSIONS Normal left ventricular size. Mild concentric left ventricular hypertrophy. Trace mitral valve regurgitation. BP: 157 / 79 HR: 80 Rhythm: Sinus MEASUREMENTS (Male / Female) Normal Values Technical Quality:Fair 2D ECHO LV Diastolic Diameter PLAX 4.6 cm 4.2 - 5.9 / 3.9 - 5.3 cm LV Systolic Diameter PLAX 3.4 cm IVS Diastolic Thickness 1.1 cm 0.6 - 1.0 / 0.6 - 0.9 cm LVPW Diastolic Thickness 1.1 cm 0.6 - 1.0 / 0.6 - 0.9 cm LV Relative Wall Thickness 0.5 RV Internal Dim ED PLAX 2.4 cm LVOT Diameter 2.3 cm Aortic Root Diameter 3.9 cm LA Systolic Diameter LX 3.5 cm 3.0 - 4.0 / 2.7 - 3.8 cm M-MODE AV Cusp Separation MM 2.1 cm DOPPLER AV Peak Velocity 127.0 cm/s AV Peak Gradient 6.5 mmHg AV Mean Gradient 4.0 mmHg AV Velocity Time Integral 23.7 cm LVOT Peak Velocity 107.0 cm/s LVOT Peak Gradient 4.6 mmHg LVOT Velocity Time Integral 19.1 cm LVOT Cardiac Index 2561.6 cm/minm AV Area Cont Eq vti 3.3 cm AV Area Cont Eq pk 3.5 cm Mitral E Point Velocity 77.3 cm/s Mitral A Point Velocity 74.0 cm/s Mitral E to A Ratio 1.0 LV E' Lateral Velocity 9.7 cm/s Mitral E to LV E' Lateral Ratio 8.0 LV E' Septal Velocity 7.2 cm/s Mitral E to LV E' Septal Ratio 10.7 PV Peak Velocity 39.3 cm/s PV Peak Gradient 0.6 mmHg FINDINGS LEFT VENTRICLE Normal left ventricular size. Mild concentric left ventricular hypertrophy. The left ventricular systolic function is normal with an estimated ejection fraction in the range of 60-65%. RIGHT VENTRICLE Normal right ventricular size and systolic function. LEFT ATRIUM The left atrial size is normal. RIGHT ATRIUM The right atrial size is normal. ATRIAL SEPTUM Normal atrial septal thickness without atrial level shunting by limited color doppler interrogation. AORTA The aortic root and proximal ascending aorta are normal in size on limited imaging. MITRAL VALVE Trace mitral valve regurgitation. AORTIC VALVE Trileaflet aortic valve. No aortic valve stenosis or regurgitation. TRICUSPID VALVE Structurally normal tricuspid valve. No tricuspid valve stenosis or regurgitation. PULMONARY VALVE The pulmonary valve is not well visualized. VESSELS The inferior vena cava is normal in size. PERICARDIUM No pericardial effusion. Amos Wang MD (Electronically Signed) Final Date:21 August 2017 16:27
[2017-08-21] MEDS ORDERED: ceFAZolin 2 GM PREMIX 50 ML IV SCH (17:00)
== END 2017-08-21 16:32 | disposition home or self-care (01) ==
LOC: NEPE 08:18 → NEDA 10:06 → INTOOBSV 10:06 → N04A 15:30
PROVIDERS: ADMIT Hospitalist; ATTEND Hospitalist
DX: I48.91 Unspecified atrial fibrillation (principal); I48.92 Unspecified atrial flutter; S82.832A Other fracture of upper and lower end of left fibula, initial encounter for closed fracture; I10 Essential (primary) hypertension; E11.9 Type 2 diabetes mellitus without complications; E78.5 Hyperlipidemia, unspecified; E78.00 Pure hypercholesterolemia, unspecified; W11.XXXA Fall on and from ladder, initial encounter; Z79.84 Long term (current) use of oral hypoglycemic drugs; Z79.4 Long term (current) use of insulin
CPT/HCPCS: 01480; 27792; 27829; 71045; 73600; 76000; 78452; 80048; 82948; 84443; 85025; 85610; 85730; 93005; 93017; 93306; 94640; 96360; 96361; 96372; 97161; 99285; A9502; C1713; G0378; G8987; G8988; J0690; J1170; J1815; J2270; J2785; J3010; J3370; J7030; J7613